=== PATIENT | male | born 1995 | race Two or more races ===

== ENCOUNTER 2017-08-11 04:18 | Emergency (ER) | payer SELFPAY ==
[~2017-08-11] VITALS: Ht 170.2 cm; Wt 68.2 kg
[2017-08-11 04:42] LABS: BASOPHILS % (AUTO) 0.5 % (0.0-2.0); EOSINOPHILS % (AUTO) 1.6 % (1.0-6.0); HEMATOCRIT 43.9 % (41-53); HEMOGLOBIN 15.8 g/dL (13.5-17.5); LYMPHOCYTES # (AUTO) 1.8 K/uL (1.0-4.8); LYMPHOCYTES % (AUTO) 23.2 % (22.0-44.0); MEAN CORPUSCULAR HEMOGLOBIN 33.6 pg (26.0-34.0); MEAN CORPUSCULAR VOLUME 93 fL (80-100); MONOCYTES # (AUTO) 0.9 K/uL (0.1-1.0); MONOCYTES % (AUTO) 11.3 % (2.0-9.0); NEUTROPHILS % (AUTO) 63.4 % (40.0-70.0); PLATELET COUNT (AUTO) 215 K/uL (150-450); RED BLOOD CELL COUNT(AUTO) 4.71 MIL/uL (4.50-5.90); RED CELL DISTRIBUTION WIDTH 12.8 % (11.5-14.5)
[2017-08-11 04:52] LABS: ANION GAP 10 mmol/L (8-16); CALCIUM, TOTAL 8.9 mg/dL (8.8-10.5); CARBON DIOXIDE 26 mmol/L (22-29); CHLORIDE 101 mmol/L (98-107); CREATININE 1.12 mg/dL (0.60-1.30); GLOMERULAR FILTR. RATE CALC > 60 mL/min (>60); GLUCOSE,RANDOM 106 mg/dL (70-110); POTASSIUM 3.3 mmol/L (3.5-5.1); SODIUM SERUM 137 mmol/L (136-145); UREA NITROGEN, BLOOD 22 mg/dL (7-18)
[2017-08-11 04:58] LABS: ALANINE AMINOTRANSFERASE 29 U/L (12-78); ALKALINE PHOSPHATASE 97 U/L (46-116); ASPARTATE AMINOTRANSFERASE 24 U/L (15-37); BILIRUBIN,TOTAL 0.9 mg/dL (0.1-1.0); TOTAL PROTEIN, SERUM 7.4 g/dL (6.4-8.2)
[2017-08-11 06:48] VITALS: BP 124/72
== END 2017-08-11 08:29 | disposition home or self-care (01) ==
LOC: EMS 04:19
DX: F15.90 Other stimulant use, unspecified, uncomplicated (principal); F12.90 Cannabis use, unspecified, uncomplicated; F17.210 Nicotine dependence, cigarettes, uncomplicated
CPT/HCPCS: 80053; 85025; 99284; G0480

== ENCOUNTER 2017-08-11 12:25 | Inpatient (IN) | payer MEDICAID ==
[~2017-08-11] VITALS: Ht 170.2 cm; Wt 62.1 kg
[2017-08-11] MEDS ORDERED: HALOPERIDOL LACTATE 5 MG/ML VIAL IM ONE (14:00)
[2017-08-11] MEDS ORDERED: LORazepam 2 MG/ML VIAL IM ONE (14:00)
[2017-08-11] MEDS ORDERED: DiphenhydrAMINE HCL 50 MG/ML VIAL IM ONE (14:00)
[2017-08-11 14:14] LABS: BASOPHILS % (AUTO) 0.3 % (0.0-2.0); EOSINOPHILS % (AUTO) 0.6 % (1.0-6.0); HEMATOCRIT 46.3 % (41-53); HEMOGLOBIN 16.3 g/dL (13.5-17.5); LYMPHOCYTES # (AUTO) 1.7 K/uL (1.0-4.8); LYMPHOCYTES % (AUTO) 17.9 % (22.0-44.0); MEAN CORPUSCULAR HEMOGLOBIN 33.1 pg (26.0-34.0); MEAN CORPUSCULAR HGB CONC 35.2 G/dL (31.0-37.0); MEAN CORPUSCULAR VOLUME 94 fL (80-100); MONOCYTES % (AUTO) 10.2 % (2.0-9.0); NEUTROPHILS # (AUTO) 6.6 K/uL (1.8-7.7); PLATELET COUNT (AUTO) 244 K/uL (150-450); RED BLOOD CELL COUNT(AUTO) 4.92 MIL/uL (4.50-5.90); RED CELL DISTRIBUTION WIDTH 12.9 % (11.5-14.5)
[2017-08-11 14:23] LABS: ANION GAP 11 mmol/L (8-16); CALCIUM, TOTAL 9.1 mg/dL (8.8-10.5); CARBON DIOXIDE 25 mmol/L (22-29); CHLORIDE 102 mmol/L (98-107); CREATININE 1.11 mg/dL (0.60-1.30); GLOMERULAR FILTR. RATE CALC > 60 mL/min (>60); GLUCOSE,RANDOM 102 mg/dL (70-110); POTASSIUM 3.9 mmol/L (3.5-5.1); SODIUM SERUM 138 mmol/L (136-145); UREA NITROGEN, BLOOD 20 mg/dL (7-18)
[2017-08-11 14:29] LABS: ALANINE AMINOTRANSFERASE 32 U/L (12-78); ALBUMIN 4.3 g/dL (3.4-5.0); ALKALINE PHOSPHATASE 104 U/L (46-116); ASPARTATE AMINOTRANSFERASE 36 U/L (15-37); TOTAL PROTEIN, SERUM 8.1 g/dL (6.4-8.2)
[2017-08-11] MEDS ORDERED: ZOLPIDEM TARTRATE 10 MG TABLET PO PRN (14:30)
[2017-08-11] MEDS ORDERED: HALOPERIDOL 5 MG TABLET PO PRN (14:30)
[2017-08-12 09:22] LABS: CHOL/HDL RATIO 2.2 (4.2-7.3)
[2017-08-12 16:13] VITALS: BP 139/70
[2017-08-12] MEDS: BENZTROPINE MESYLATE 0.5 MG TABLET PO SCH (17:29)
[2017-08-12] MEDS: HALOPERIDOL 5 MG TABLET PO SCH (17:29)
[2017-08-13 06:22] VITALS: BP 109/63
[2017-08-13 08:16] VITALS: BP 116/75
[2017-08-13] MEDS ORDERED: ALBUTEROL SULFATE HFA 90 MCG/PUFF 8 GM INHALER IH PRN (08:30)
[2017-08-13] MEDS ORDERED: MAG HYDROX/AL HYDROX/SIMETH ES 30 ML SUSPENSION UDCUP PO PRN (08:30)
[2017-08-13] MEDS ORDERED: LOPERAMIDE HCL 2 MG CAPSULE PO PRN (08:30)
[2017-08-13] MEDS ORDERED: CloNIDine HCL 0.1 MG TABLET PO PRN (08:30)
[2017-08-13] MEDS ORDERED: ONDANSETRON HCL 4 MG TABLET PO PRN (08:30)
[2017-08-13] MEDS ORDERED: MAGNESIUM HYDROXIDE SUSPENSION 30 ML UDCUP PO PRN (08:30)
[2017-08-13] MEDS ORDERED: BACITRACIN 28.4 GM OINTMENT TP PRN (08:30)
[2017-08-13] MEDS ORDERED: PETROLATUM,WHITE 71 GM JELLY TP PRN (08:30)
[2017-08-13] MEDS ORDERED: IBUPROFEN 600 MG TABLET PO PRN (08:30)
[2017-08-13] MEDS ORDERED: BENZOCAINE/MENTHOL LOZENGE MM PRN (08:30)
[2017-08-13] MEDS ORDERED: ACETAMINOPHEN 325 MG TABLET PO PRN (08:30)
[2017-08-13] MEDS: HALOPERIDOL 5 MG TABLET PO SCH ×2 (08:43→17:13)
[2017-08-13] MEDS: BENZTROPINE MESYLATE 0.5 MG TABLET PO SCH ×2 (08:43→17:13)
[2017-08-13 16:08] VITALS: BP 125/62
[2017-08-13] MEDS: LORazepam 2 MG TABLET PO PRN (17:13)
[2017-08-14 06:24] VITALS: BP 116/63
[2017-08-14 08:04] VITALS: BP 129/67
[2017-08-14] MEDS: BENZTROPINE MESYLATE 0.5 MG TABLET PO SCH ×2 (08:19→17:07)
[2017-08-14] MEDS: HALOPERIDOL 5 MG TABLET PO SCH ×2 (08:20→17:07)
[2017-08-14] MEDS: LORazepam 2 MG TABLET PO PRN (08:20)
[2017-08-14 16:00] VITALS: BP 114/72
[2017-08-15 06:54] VITALS: BP 108/62
[2017-08-15 08:15] VITALS: BP 115/68
[2017-08-15] MEDS: BENZTROPINE MESYLATE 0.5 MG TABLET PO SCH ×2 (08:17→17:01)
[2017-08-15] MEDS: HALOPERIDOL 5 MG TABLET PO SCH ×2 (08:17→16:58)
[2017-08-15] MEDS: LORazepam 2 MG TABLET PO PRN (16:59)
[2017-08-16 06:40] VITALS: BP 105/62
[2017-08-16 08:44] VITALS: BP 124/55
[2017-08-16] MEDS: HALOPERIDOL 5 MG TABLET PO SCH ×2 (08:49→17:19)
[2017-08-16] MEDS: BENZTROPINE MESYLATE 0.5 MG TABLET PO SCH ×2 (08:49→17:19)
[2017-08-16] MEDS: LORazepam 2 MG TABLET PO PRN ×2 (08:49→17:19)
[2017-08-16 16:18] VITALS: BP 117/72
[2017-08-17 08:01] VITALS: BP 110/70
[2017-08-17] MEDS: BENZTROPINE MESYLATE 0.5 MG TABLET PO SCH ×2 (08:03→17:03)
[2017-08-17] MEDS: HALOPERIDOL 5 MG TABLET PO SCH ×2 (08:03→17:03)
[2017-08-17 16:05] VITALS: BP 111/74
[2017-08-17] MEDS: LORazepam 2 MG TABLET PO PRN (17:03)
[2017-08-18 06:38] VITALS: BP 113/68
[2017-08-18 08:14] VITALS: BP 115/69
[2017-08-18] MEDS ORDERED: BENZ0.5T44 PO (09:30)
[2017-08-18] MEDS ORDERED: HALO5TAB2 PO (09:30)
== END 2017-08-18 11:15 | disposition home or self-care (01) | DRG 751 ==
LOC: EMS 12:26 → B3A 08-12 14:24 → B2S 08-18 09:30
PROVIDERS: ADMIT Psychiatry & Neurology Psychiatry; ATTEND Psychiatry & Neurology Psychiatry
DX: F29 Unspecified psychosis not due to a substance or known physiological condition (principal); R45.851 Suicidal ideations; F15.20 Other stimulant dependence, uncomplicated; Z78.1 Physical restraint status; Z91.19 Patient's noncompliance with other medical treatment and regimen; R45.87 Impulsiveness; F41.9 Anxiety disorder, unspecified; G47.00 Insomnia, unspecified; F17.200 Nicotine dependence, unspecified, uncomplicated; F12.90 Cannabis use, unspecified, uncomplicated; Z59.0 Homelessness
CPT/HCPCS: 87081; 96372; 99285; G0480; J1200; J1630; J2060